=== PATIENT | female | born 1980 | race Hispanic/Latino ===

== ENCOUNTER 2016-05-02 23:26 | Inpatient (IN) | payer OTHER ==
[~2016-05-02] VITALS: Ht 152.4 cm; Wt 86.1 kg
[~2016-05-02 23:26] MED LIST: ACYCLOVIR400 MG PO; PRENATAL TABLE1 EACH PO
[2016-05-02 23:46] VITALS: BP 133/87
[2016-05-03] VITALS (16 sets, daily range): BP systolic 120–139; BP diastolic 67–90
[2016-05-03 00:41] LABS: HEMATOCRIT 39.6 % (36.0-46.0); MCH 28.2 PG (29.0-34.0); MCHC 34.1 G/DL (30.0-36.0); MCV 82.8 FL (83-99); MEAN PLAT.VOLUME 12.1 uM^3 (9.5-12.4); PLATELET COUNT 166 K/uL (156-360); RBC DIS.WIDTH-CV 15.1 % (11.8-14.6); RBC DIS.WIDTH-SD 44.8 % (39-53); RED BLOOD COUNT 4.78 M/uL (3.80-5.20); WHITE BLOOD COUNT 11.7 K/uL (4.1-10.2)
[2016-05-04 02:59] VITALS: BP 111/68
[2016-05-04 07:21] LABS: EOSINOPHIL (%) 0.1 % (0-5); HEMATOCRIT 33.4 % (36.0-46.0); IMMATURE GRANULOCYTE (%) 0.2 % (0.0-0.7); LYMPHOCYTE COUNT 1.5 K/uL (1.0-2.8); MCV 84.3 FL (83-99); MONOCYTE (%) 6.9 % (3-12); MONOCYTE COUNT 0.7 K/uL (0-0.8); NEUTROPHIL COUNT 7.5 K/uL (1.8-6.4); PLATELET COUNT 157 K/uL (156-360); RBC DIS.WIDTH-CV 15.6 % (11.8-14.6); RBC DIS.WIDTH-SD 48.1 % (39-53); RED BLOOD COUNT 3.96 M/uL (3.80-5.20); WHITE BLOOD COUNT 9.8 K/uL (4.1-10.2)
[2016-05-04 08:25] VITALS: BP 133/72
[2016-05-04 11:30] VITALS: BP 128/78
[2016-05-04 15:00] VITALS: BP 130/76
[2016-05-04 19:00] VITALS: BP 130/85
[2016-05-04 23:26] VITALS: BP 132/82
[2016-05-05 03:00] VITALS: BP 130/81
[2016-05-05 09:23] VITALS: BP 138/87
[2016-05-05] MEDS ORDERED: ENDOCET 5-3251 EACH PO (09:53)
[2016-05-05] MEDS ORDERED: IBUPROFEN800 MG PO (09:53)
[2016-05-05 12:21] VITALS: BP 122/78
[2016-05-05 16:01] VITALS: BP 125/80
== END 2016-05-05 19:50 | disposition home or self-care (01) | DRG 765 ==
LOC: LDRP-OP 23:26 → 2WEST 23:27
PROVIDERS: Obstetrics & Gynecology
DX: O34.211 Maternal care for low transverse scar from previous cesarean delivery (principal); O98.32 Other infections with a predominantly sexual mode of transmission complicating childbirth; A60.09 Herpesviral infection of other urogenital tract; O99.214 Obesity complicating childbirth; E66.3 Overweight; Z3A.39 39 weeks gestation of pregnancy; Z37.0 Single live birth; Z30.2 Encounter for sterilization; Z68.27 Body mass index [BMI] 27.0-27.9, adult
CPT/HCPCS: 85025; 85027; 86850; 86870; 86900; 86901; 86905; 86920; 88302; G0378; J0595; J0690; J2274; J2405; J3010; J7120